=== PATIENT | male | born 1945 | race Two or more races ===

== ENCOUNTER 2023-12-02 11:28 | Day surgery (SDC) | payer MEDICARE, BC ==
[~2023-12-02] VITALS: Ht 165.1 cm; Wt 71.9 kg
[2023-12-02] MEDS ORDERED: ARA20T PO (12:20)
[2023-12-02] MEDS ORDERED: FURO20TA4 PO (12:20)
[2023-12-02] MEDS ORDERED: MIDAZolam 1mg/ml 10ml vial IV ONE (12:20)
[2023-12-02] MEDS ORDERED: LISI40TA13 PO (12:20)
[2023-12-02] MEDS ORDERED: CARV6.253 PO (12:20)
[2023-12-02] MEDS ORDERED: SODI650T29 PO (12:20)
[2023-12-02] MEDS ORDERED: AMLO5TAB16 PO (12:20)
[2023-12-02 12:55] LABS: BASOPHILS # (AUTO) 0.1 X10'3 (0-0.2); BASOPHILS % (AUTO) 0.7 % (0-1); EOSINOPHILS # (AUTO) 0.4 X10'3 (0-0.9); EOSINOPHILS % (AUTO) 5.3 % (0-6); HEMATOCRIT 32.8 % (42.0-52.0); HEMOGLOBIN 10.7 g/dl (14.0-17.9); LYMPHOCYTES # (AUTO) 1.8 X10'3 (1.1-4.8); LYMPHOCYTES % (AUTO) 22.2 % (21-51); MEAN CORPUSCULAR HEMOGLOBIN 28.8 PG (27.0-31.0); MEAN CORPUSCULAR HGB CONC 32.5 g/dL (33.0-36.5); MEAN CORPUSCULAR VOLUME 88.7 FL (78-98); MEAN PLATELET VOLUME 7.4 FL (7.4-10.4); MONOCYTES # (AUTO) 0.8 X10'3 (0-0.9); MONOCYTES % (AUTO) 9.4 % (2-12); NEUTROPHILS # (AUTO) 5.1 X10'3 (1.8-7.7); NEUTROPHILS % (AUTO) 62.4 % (42-75); PLATELET COUNT 331 X10'3 (140-440); RED CELL DISTRIBUTION WIDTH 14.9 % (11.5-14.5); WHITE BLOOD COUNT 8.2 X10'3 (4.5-11.0)
[2023-12-02 13:02] LABS: APTT 32 SECONDS (22-32); PROTHROMBIN TIME 10.9 SECONDS (9.0-12.0)
[2023-12-02 13:03] LABS: ALANINE AMINOTRANSFERASE 13 U/L (12-78); ALBUMIN 3.2 G/DL (3.4-5.0); ALBUMIN/GLOBULIN RATIO 0.7 (1.1-1.5); ALKALINE PHOSPHATASE 121 IU/L (46-116); ANION GAP 10 (8-16); ASPARTATE AMINO TRANSFERASE 13 U/L (10-37); BILIRUBIN,TOTAL 0.4 MG/DL (0.1-1.0); BLOOD UREA NITROGEN 64 MG/DL (7-18); BUN/CREATININE RATIO 19.9 (10.0-20.0); CALCIUM 8.9 MG/DL (8.5-10.1); CHLORIDE 106 MMOL/L (99-107); CREATININE 3.22 MG/DL (0.60-1.10); GLUCOSE 90 MG/DL (70-104); POTASSIUM 4.8 MMOL/L (3.5-5.1); SODIUM 135 MMOL/L (135-145); TOTAL CARBON DIOXIDE 18.9 MMOL/L (24-32); TOTAL PROTEIN 7.7 G/DL (6.4-8.2); eCRCL 17 ML/MIN; eGFR 19 ML/MIN
[2023-12-02 13:47] LABS: BILIRUBIN,URINE NEGATIVE (Neg); CLARITY,URINE CLEAR (Clear); COLOR,URINE YELLOW (Yellow); GLUCOSE, URINE NEGATIVE (Neg); KETONES,URINE NEGATIVE (Neg); LEUKOCYTE ESTERASE ,URINE NEGATIVE (Neg); NITRITES, URINE NEGATIVE (Neg); OCCULT BLOOD,URINE NEGATIVE (Neg); PH,URINE 5.5 (4.8-8.0); PROTEIN,URINE TRACE mg/dl (Neg); UROBILINOGEN,URINE 0.2 E.U/dL (0.2-1.0)
[2023-12-02 13:59] LABS: SQUAMOUS EPITHELIAL CELL,UR FEW /LPF (FEW); UA COLLECTION TYPE NON-SPECIFIED
[2023-12-02 14:00] LABS: BACTERIA,URINE NONE SEEN /HPF (Neg); WBC,URINE 0-4 /HPF (0-4)
== END 2023-12-02 13:40 | disposition home or self-care (01) ==
LOC: SSTAY O 11:28
PROVIDERS: ATTEND Internal Medicine Critical Care Medicine
DX: N18.4 Chronic kidney disease, stage 4 (severe) (principal); Z53.8 Procedure and treatment not carried out for other reasons; E11.22 Type 2 diabetes mellitus with diabetic chronic kidney disease; I12.9 Hypertensive chronic kidney disease with stage 1 through stage 4 chronic kidney disease, or unspecified chronic kidney disease; D63.1 Anemia in chronic kidney disease; E87.5 Hyperkalemia; M19.90 Unspecified osteoarthritis, unspecified site; M06.9 Rheumatoid arthritis, unspecified; Z79.899 Other long term (current) drug therapy
CPT/HCPCS: 36415; 80053; 81001; 85025; 85610; 85730; J7030; A4620; A6449

== ENCOUNTER 2023-12-07 10:19 | Day surgery (SDC) | payer MEDICARE, BC ==
[~2023-12-07] VITALS: Ht 165.1 cm; Wt 72.0 kg
[2023-12-07] VITALS (31 sets, daily range): BP systolic 83–184; BP diastolic 50–112; PULSE 59–76; RESP 12–24; TEMP 97.6; O2SAT 94–98
[~2023-12-07 10:19] MED LIST: AMLO5TAB16 PO; ARA20T PO; CARV6.253 PO; FURO20TA4 PO; LISI40TA13 PO; SODI650T29 PO
[2023-12-07] MEDS ORDERED: DESMOPRESSIN IV ONE ×2 (10:45→10:51)
[2023-12-07] MEDS ORDERED: NORMAL SALINE IV ONE ×2 (10:45→10:51)
[2023-12-07] MEDS ORDERED: MIDAZolam 5mg/ml 2ml vial IV PRN (10:45)
[2023-12-07] MEDS ORDERED: midazolam 1 mg/ML 2ml injection IV PRN (10:59)
[2023-12-07] MEDS ORDERED: LIDOcaine 1% 30ml preserv. free vial IJ STA (11:00)
[2023-12-07] MEDS ORDERED: lisinopril 20mg tablet PO STA (12:21)
[2023-12-07] MEDS ORDERED: carVEDilol 3.125mg tablet PO STA (12:21)
[2023-12-07] MEDS ORDERED: amLODIPine 5mg tablet PO STA (12:28)
[2023-12-07] MEDS ORDERED: CARV3.122 PO (12:28)
[2023-12-07] MEDS ORDERED: acetaminophen w/codeine (30MG) #3 tablet PO PRN (14:00)
[2023-12-07 15:05] LABS: HEMATOCRIT 28.5 % (42.0-52.0); HEMOGLOBIN 9.5 g/dl (14.0-17.9); MEAN CORPUSCULAR HEMOGLOBIN 29.4 PG (27.0-31.0); MEAN CORPUSCULAR HGB CONC 33.2 g/dL (33.0-36.5); MEAN CORPUSCULAR VOLUME 88.7 FL (78-98); MEAN PLATELET VOLUME 7.2 FL (7.4-10.4); PLATELET COUNT 312 X10'3 (140-440); RED BLOOD COUNT 3.22 X10'6 (4.70-6.10); RED CELL DISTRIBUTION WIDTH 14.9 % (11.5-14.5)
[2023-12-07 17:12] LABS: HEMATOCRIT 28.6 % (42.0-52.0); HEMOGLOBIN 9.3 g/dl (14.0-17.9); MEAN CORPUSCULAR HEMOGLOBIN 28.9 PG (27.0-31.0); MEAN CORPUSCULAR HGB CONC 32.6 g/dL (33.0-36.5); MEAN CORPUSCULAR VOLUME 88.6 FL (78-98); MEAN PLATELET VOLUME 7.2 FL (7.4-10.4); PLATELET COUNT 329 X10'3 (140-440); RED BLOOD COUNT 3.23 X10'6 (4.70-6.10); RED CELL DISTRIBUTION WIDTH 14.9 % (11.5-14.5); WHITE BLOOD COUNT 7.6 X10'3 (4.5-11.0)
== END 2023-12-07 17:45 | disposition home or self-care (01) ==
LOC: SSTAY O 10:19
PROVIDERS: ATTEND Internal Medicine Critical Care Medicine
DX: N18.4 Chronic kidney disease, stage 4 (severe) (principal); D63.1 Anemia in chronic kidney disease; E87.8 Other disorders of electrolyte and fluid balance, not elsewhere classified; Z79.899 Other long term (current) drug therapy
CPT/HCPCS: 36415; 50200; 76942; 85027; 86885; 86900; 86901; 86920; J2250; J2597; J3490; J7030; 88346; 88350; A4620; A6449

== ENCOUNTER 2024-06-29 09:46 | Outpatient (CLI) | payer MEDICARE, BC ==
[~2024-06-29 09:46] MED LIST changes: +CARV3.122 PO
== END 2024-06-29 23:59 | disposition home or self-care (01) ==
LOC: RAD 09:46
PROVIDERS: ATTEND Student in an Organized Health Care Education/Training Program
DX: K76.0 Fatty (change of) liver, not elsewhere classified (principal); K80.20 Calculus of gallbladder without cholecystitis without obstruction; R10.11 Right upper quadrant pain
CPT/HCPCS: 76700

== ENCOUNTER 2024-06-29 14:00 | Outpatient (CLI) | payer MEDICARE, BC ==
[2024-06-29 14:38] LABS: BASOPHILS # (AUTO) 0.1 X10'3 (0-0.2); BASOPHILS % (AUTO) 0.5 % (0-1); EOSINOPHILS # (AUTO) 0.4 X10'3 (0-0.9); EOSINOPHILS % (AUTO) 4.3 % (0-6); HEMATOCRIT 33.1 % (42.0-52.0); HEMOGLOBIN 10.9 g/dl (14.0-17.9); LYMPHOCYTES # (AUTO) 2.7 X10'3 (1.1-4.8); LYMPHOCYTES % (AUTO) 26.6 % (21-51); MEAN CORPUSCULAR HEMOGLOBIN 28.9 PG (27.0-31.0); MEAN CORPUSCULAR HGB CONC 32.9 g/dL (33.0-36.5); MEAN CORPUSCULAR VOLUME 87.9 FL (78-98); MEAN PLATELET VOLUME 6.8 FL (7.4-10.4); MONOCYTES # (AUTO) 0.7 X10'3 (0-0.9); MONOCYTES % (AUTO) 7.1 % (2-12); NEUTROPHILS # (AUTO) 6.2 X10'3 (1.8-7.7); NEUTROPHILS % (AUTO) 61.5 % (42-75); PLATELET COUNT 377 X10'3 (140-440); RED BLOOD COUNT 3.76 X10'6 (4.70-6.10); RED CELL DISTRIBUTION WIDTH 15.1 % (11.5-14.5); WHITE BLOOD COUNT 10.1 X10'3 (4.5-11.0)
== END 2024-06-29 23:59 | disposition home or self-care (01) ==
LOC: LAB 14:00
PROVIDERS: ATTEND Family Medicine
DX: K80.20 Calculus of gallbladder without cholecystitis without obstruction (principal)
CPT/HCPCS: 36415; 85025

== ENCOUNTER 2025-02-13 12:48 | Emergency (ER) | payer MEDICARE, BC ==
[~2025-02-13] VITALS: Ht 165.1 cm; Wt 69.1 kg
[2025-02-13 12:57] VITALS: TEMP 98
[2025-02-13] MEDS: cyclobenzaprine 10mg tablet PO ONE (16:44)
[2025-02-13] MEDS: HYDROcodone/acetaminophen 10/325mg tab PO ONE (16:45)
[2025-02-13] MEDS: ondansetron 4mg rapidly disintigrating tab PO ONE (16:46)
[2025-02-13] MEDS: dexamethasone sod phosphate 10mg/ml inj IM STA (16:46)
[2025-02-13] MEDS: LIDOcaine 5% patch TP SCH (16:57)
[2025-02-13] MEDS: LIDOcaine 5% patch TP STA (16:57)
[2025-02-13] MEDS ORDERED: CYCL-1 PO (17:24)
[2025-02-13] MEDS ORDERED: LIDO700A32 TOP (17:24)
[2025-02-13] MEDS ORDERED: HYDR-3972 PO (17:24)
[2025-02-13 17:37] VITALS: BP 135/88; PULSE 87; RESP 15; O2SAT 98
== END 2025-02-13 17:42 | disposition home or self-care (01) ==
LOC: ER 12:49
DX: S39.012A Strain of muscle, fascia and tendon of lower back, initial encounter (principal); M54.10 Radiculopathy, site unspecified; X58.XXXA Exposure to other specified factors, initial encounter; Y93.89 Activity, other specified; Y92.89 Other specified places as the place of occurrence of the external cause; Y99.8 Other external cause status
CPT/HCPCS: 72100; 96372; 99284; J1100

== ENCOUNTER → 2025-03-31 | Outpatient (CLI) | payer MEDICARE, BC ==
[~2025-03-31] MED LIST changes: +CYCL-1 PO; +LIDO700A32 TOP
--- NOTE | 2025-03-31 14:45 | RADIOLOGY REPORT ---
EXAM: MR MRI THORACIC SPINE HISTORY: LUMBAR RADICULOPATHY,PAIN IN THORACIC SPINE COMPARISON: None TECHNIQUE: Multiplanar, multisequence MRI was performed. FINDINGS: VERTEBRAE: Depression of the superior endplate of T12 and inferior endplate of T11 noted with proxima lly 50% loss of height, 8.6 mm retropulsion of the superior -posterior cortex of T12 and extensive ad jacent bone marrow edema. Fluid is seen T11-T12 disc. A subcentimeter Schmorl's node is seen in the superior endplate of T9. INTERVERTEBRAL DISCS: As mentioned above, at T11-T12, fluid is seen at the disc space anteriorly and with severe reduction of disc space posteriorly. No disc herniation is noted. Moderate central canal stenosis due to superior T12 retropulsion noted impinging the spinal canal with underlying increased T2 signal within the cord moderate narrowing of the caliber of the cord Mild multilevel degenerative changes. No significant central canal or neural foramina stenosis. No definite impingement of the bilateral exiting nerves and traversing nerve roots. SPINAL CORD: Normal morphology and signal without evidence for cord edema or myelomalacia. It termin ates at T12-L1 level. PARASPINAL SOFT TISSUES: Right perivertebral soft tissue fullness noted at the level of T11-T12. OTHER: Several subcentimeter right renal cysts are noted. IMPRESSION: 1. 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 The findings should be further evaluated with MRI with IV contrast. 2. Compression deformities of T11 and T12 vertebral bodies with 8 mm retropulsion of T12 with resulta nt in cord compression and cord edema. Recommend neurosurgical consultation for possible decompressio n. 3. Extensive bone marrow edema in T11 and T12 of the bodies that could be secondary to infarction or acute/subacute compression fractures.
--- NOTE | 2025-03-31 17:02 | RADIOLOGY REPORT ---
PROCEDURE: MR MRI LUMBAR SPINE INDICATION: LUMBAR RADICULOPATHY,PAIN IN THORACIC SPINE Exam Date: 03/31/2025 11:20 AM COMPARISON: None TECHNIQUE: MRI lumbar spine without intravenous contrast. FINDINGS: The lumbar alignment is intact. Osteomyelitis/discitis T11-12 partially imaged appears to result in severe central canal stenosis at this level. There appears to be abnormal cord signal at this level. There are degenerative endplate changes including modic endplate changes with anterior and lateral os teophytes throughout the lumbar spine. The visualized distal spinal cord and conus medullaris are wit hin normal limits. The conus medullaris appears to terminate within normal limits. The visualized r etroperitoneal and paraspinal soft tissues are unremarkable. The following axial levels are detailed below: T12-L1: There is a mild circumferential disc bulge. No significant central canal or neuroforaminal s tenosis. L1-L2: There is a moderate circumferential disc bulge complicated by facet arthropathy associated w ith mild to moderate bilateral neuroforaminal stenosis. No significant central canal stenosis. L2-L3: There is a moderate circumferential disc bulge complicated by facet arthropathy associated w ith mild to moderate bilateral neuroforaminal stenosis. No significant central canal stenosis. L3-L4: There is a mild circumferential disc bulge. No significant central canal or neuroforaminal s tenosis. L4-L5: There is a moderate circumferential disc bulge complicated by facet arthropathy associated w ith mild to moderate bilateral neuroforaminal stenosis. No significant central canal stenosis. L5-S1: There is a severe circumferential disc bulge complicated by facet arthropathy narrowing the c entral canal to 9 mm with associated moderate to severe bilateral neuroforaminal stenosis. IMPRESSION: 1. Osteomyelitis discitis at T11-12 partially imaged appears to result in severe central canal stenos is. Suspect abnormal cord signal at this level. Correlate with same day MRI of the thoracic spine fo r further details. 2. Multilevel degenerative disease. Mild central canal stenosis L5-S1. Neural foraminal stenosis as a cassidy. HS:Y
== END | disposition home or self-care (01) ==
LOC: MRI02 09:56
PROVIDERS: ATTEND Nurse Practitioner Family
DX: M51.17 Intervertebral disc disorders with radiculopathy, lumbosacral region (principal); R07.81 Pleurodynia; M47.27 Other spondylosis with radiculopathy, lumbosacral region; M48.07 Spinal stenosis, lumbosacral region; M46.24 Osteomyelitis of vertebra, thoracic region
CPT/HCPCS: 72146; 72148

== ENCOUNTER 2025-07-21 13:28 | Outpatient (CLI) | payer MEDICARE, BC ==
[~2025-07-21 13:28] MED LIST changes: +LIDO-52 TOP; -LIDO700A32 TOP; -LISI40TA13 PO; +LISI40TA20 PO
[2025-07-21 15:34] LABS: CREATININE 3.28 MG/DL (0.60-1.10); TOTAL CARBON DIOXIDE 23.2 MMOL/L (24-32)
[2025-07-21 15:35] LABS: PRO BRAIN NATRIURETIC PEPTIDE 2136 PG/ML (0-450); eGFR 18 ML/MIN
--- NOTE | 2025-07-21 18:49 | VASCULAR REPORT ---
BILATERAL LOWER EXTREMITY VENOUS DUPLEX REASON FOR EXAMINATION: Pain in bilateral lower extremities, [id number]-left. COMPARISON: None TECHNIQUE: Using real-time freeze-frame technique with a high-frequency transducer, multiple longitudinal and transverse sections were obtained. Simultaneous color flow and spectral Doppler imaging was performed. FINDINGS: There is good visualization of the deep venous system with no intraluminal filling defects identified. Normal venous compressibility is seen and there is flow augmentation. Color flow Doppler imaging is unremarkable. There is an approximately 4.5 x 1.4 x 3.3 cm morphologically normal lymph node in the left groin. IMPRESSION: NO EVIDENCE OF DEEP VENOUS THROMBOSIS.
--- NOTE | 2025-07-21 18:53 | VASCULAR REPORT ---
SEGMENTAL PRESSURES/ANKLE-BRACHIAL INDEX REASON FOR EXAMINATION: Pain in bilateral lower extremities, [id number]-left. COMPARISON: VASC VL ARTERIAL on DOS: 07/21/25, VASC VL VENOUS on DOS: 07/21/25 TECHNIQUE: Patient evaluation includes blood pressures, ankle-brachial indices, and segmental doppler waveform analysis at rest and post exercise when applicable. Toe brachial indices (TBI) are taken when necessary. FINDINGS: SEGMENTAL BLOOD PRESSURES ARE FOLLOWS: RIGHT: Brachial: 184 mm Hg. Posterior tibial: 122 mm Hg Anterior tibial: 88 mm Hg The right KALIE is moderately decreased with a value of 0.66. LEFT: Brachial: 144 mm Hg. Posterior tibial: 134 mm Hg Anterior tibial: 114 mm Hg The left KALIE is moderately decreased with a value of 0.73. Right dorsal pedal and posterior tibial artery waveforms are monophasic. Left posterior tibial artery waveforms are monophasic. Left dorsal pedal artery waveforms are multiphasic. IMPRESSION: Moderately decreased KALIE bilaterally. Recommend further evaluation with bilateral lower extremity arterial duplex Doppler. Note: Non-compressible/calcified vessels such as seen in the diabetic/ESRD population render falsely elevated and inaccurate segmental pressures. Correlation with doppler Ultrasound evaluation of the lower extremities is recommended in this population.
--- NOTE | 2025-07-21 19:10 | VASCULAR REPORT ---
BILATERAL LOWER EXTREMITY ARTERIAL DUPLEX ULTRASOUND STUDY: REASON FOR EXAM: Pain in bilateral lower extremities, [id number]-left. TECHNIQUE: The full lengths of the arterial segments were evaluated with color- flow Doppler ultrasound. Suspected abnormalities were evaluated with kaye scale ultrasound. Staff Counsel spectral Doppler waveforms, with velocity measurements were obtained. Spectral waveforms with velocity measurements were obtained 2 to 4 cm central to any areas of significant stenosis. Common femoral, superficial femoral, popliteal, posterior tibial, and dorsal pedal arteries were evaluated. FINDINGS: Right: There is diffuse atherosclerotic plaque throughout the right lower extremity. The common femoral artery waveform is multiphasic with a brisk upstroke. The superficial femoral and popliteal arteries are patent with mostly high velocity monophasic waveforms. There is increased velocity in the midp ortion of the SFA corresponding to greater than 50% luminal narrowing. The posterior tibial artery, peroneal artery, and dorsal pedal artery are patent with monophasic waveforms. Left: There is diffuse atherosclerotic plaque throughout the left lower extremity. The common femoral artery waveform is multiphasic with a brisk upstroke. The superficial femoral and popliteal arteries are patent with multiphasic waveforms. There is increased velocity in the midportion of the left SFA corresponding to greater than 50% luminal narrowing. There is increased velocity in the proximal popliteal artery corresponding to greater than 80% luminal narrowing. The posterior tibial artery is patent with monophasic waveforms. The dorsal pedal and peroneal arteries are patent with multiphasic w aveforms. IMPRESSION: Diffuse atherosclerotic disease. Greater than 50% focal stenosis in the mid right SFA and distal left SFA. Greater than 80% focal stenosis in the proximal left popliteal artery.
== END 2025-07-21 23:59 | disposition home or self-care (01) ==
LOC: VAS 13:28
PROVIDERS: ATTEND Nurse Practitioner Family
DX: I70.203 Unspecified atherosclerosis of native arteries of extremities, bilateral legs (principal); I70.8 Atherosclerosis of other arteries; R60.0 Localized edema; M79.604 Pain in right leg; M54.50 Low back pain, unspecified; I77.89 Other specified disorders of arteries and arterioles
CPT/HCPCS: 80053; 82607; 82746; 83036; 83880; 93922; 93925; 93970